=== PATIENT | female | born 1940 | race Caucasian/White ===

== ENCOUNTER → 2017-04-05 | Outpatient (CLI) | payer OTHER ==
[~2017-04-05] MED LIST: ALLOPURINOL 30300 M2 PO; ASPIR 8181 MG PO; ASPIRIN EC81 M1 PO; ASPIRIN325 PO; BENADRYL25 MG PO; COLACE100 MG PO; CRESTOR10 MG PO; DIVIGEL0.25 MG TD; DOXYCYCLINE 10100 M1 PO; ESTRADIOL 1 MG T1 M1 PO; FLEXERIL PO; HYDROCORTISONE3011 TOP; INDOMETHACIN 2525 MG PO; MAXZIDE 75-501 EACH PO; MAXZIDE-25 MG1 EACH PO; MILK OF MA2400 MG/10 PO; MINOCIN100 MG PO; MIRALAX17 GM PO; NEXIUM40 MG PO; NYAMYC15 GM TOP; ONDANSETRON HCL4 M2 PO; OXYCODONE HCL 55 MG PO; SENNALAX-S TAB1 EACH PO; TRANSDERM-SCO1 PATC1 TRANSDERM
== END ==
LOC: M.MRI 03-29 09:10
DX: M48.061 Spinal stenosis, lumbar region without neurogenic claudication (principal); M54.16 Radiculopathy, lumbar region; M47.896 Other spondylosis, lumbar region; M51.26 Other intervertebral disc displacement, lumbar region; M75.101 Unspecified rotator cuff tear or rupture of right shoulder, not specified as traumatic; M75.51 Bursitis of right shoulder; M43.16 Spondylolisthesis, lumbar region

== ENCOUNTER → 2019-05-16 | Outpatient (CLI) | payer OTHER | LOC: M.MRI 14:08 | DX: M50.21 Other cervical disc displacement, high cervical region (principal); M25.78 Osteophyte, vertebrae ==